=== PATIENT | female | born 1995 | race African-American/Black ===

== ENCOUNTER 2018-11-27 05:45 | Inpatient (IN) ==
[2018-11-27] MEDS ORDERED: FAMOTIDINE 20 MG/2 ML VIAL IV ONE (06:01)
[2018-11-27] MEDS ORDERED: ceFAZolin 3,000 MG in SYRINGE 1 EACH IV ONE (06:01)
[2018-11-27] MEDS ORDERED: CITRIC ACID/SODIUM CITRATE 30 ML UDCUP PO ONE (06:01)
[2018-11-27 06:30] LABS: Basophils % 0.3 % (0.0-0.8); Eosinophils % 0.3 % (0.00-10.9); Hematocrit 30.7 VOL% (35.7-47.0); Immature Granulocytes % 0.6 %; Immature Granulocytes Absolute 0.06 #; Lymphocytes # 2.9 10*3/uL (1.4-4.0); Lymphocytes % 29.5 % (21.3-54.2); Mean Corpuscular HGB Conc 29.3 GM/DL (32-36); Mean Corpuscular Hemoglobin 22 PG (27-34); Mean Corpuscular Volume 76.2 FL (87-102); Monocytes # 0.8 10*3/uL (0.11-0.8); Monocytes % 8.3 % (1.7-12.7); Platelet Count 200 T/CUMM (130-400); Red Blood Count 4.03 MC/CUMM (3.8-5.5); Red Cell Distribution Width 16.8 % (9.3-17.3); White Blood Count 9.9 T/CUMM (4-12)
[2018-11-27] MEDS: LACTATED RINGERS 1,000 ML IV SCH ×2 (06:38→09:38)
[2018-11-27] MEDS ORDERED: ONDANSETRON 4 MG/2 ML VIAL ONE ×2 (08:35→12:05)
[2018-11-27] MEDS ORDERED: OXYTOCIN/LR 30 UNIT/1,000 ML BAG IV ONE (09:44)
[2018-11-27] MEDS ORDERED: OXYTOCIN 10 UNIT/ML VIAL IM ONE (09:44)
[2018-11-27] MEDS ORDERED: fentaNYL 100 MCG/2 ML VIAL ONE (12:05)
[2018-11-27] MEDS ORDERED: BUPIVACAINE SPINAL 0.75% 2 ML AMP SPINAL ONE (12:05)
[2018-11-27] MEDS ORDERED: MORPHINE 10 MG/10 ML VIAL ONE (12:05)
[2018-11-27] MEDS ORDERED: RHO(D) IMMUNE GLOBULIN 300 MCG SYRINGE IM ONE (14:31)
[2018-11-27] MEDS ORDERED: ACETAMINOPHEN 325 MG TABLET PO PRN (14:31)
[2018-11-27] MEDS ORDERED: OXYTOCIN/LR 20 UNIT/1,000 ML BAG IV ONE (14:31)
[2018-11-27] MEDS ORDERED: LACTATED RINGERS 1,000 ML IV SCH (15:00)
[2018-11-27] MEDS ORDERED: ceFAZolin 1,000 MG in SYRINGE 1 EACH IV SCH (15:00)
[2018-11-27] MEDS: ONDANSETRON 4 MG/2 ML VIAL IV PRN ×2 (15:02→20:01)
[2018-11-27] MEDS ORDERED: hydrALAZINE 20 MG/1 ML VIAL IV ONE (19:43)
[2018-11-27] MEDS ORDERED: MEPERIDINE 50 MG/1 ML VIAL IV PRN (19:45)
[2018-11-27] MEDS ORDERED: MEPERIDINE 50 MG/1 ML VIAL ONE (19:47)
[2018-11-27] MEDS: ceFAZolin 1,000 MG in SYRINGE 1 EACH IV SCH (20:23)
[2018-11-27 20:41] LABS: Basophils % 0.1 % (0.0-0.8); Eosinophils % 0.1 % (0.00-10.9); Hemoglobin 8.2 GM/DL (12.0-16.0); Immature Granulocytes % 0.6 %; Immature Granulocytes Absolute 0.05 #; Lymphocytes # 1.6 10*3/uL (1.4-4.0); Lymphocytes % 18.4 % (21.3-54.2); Mean Corpuscular HGB Conc 30.4 GM/DL (32-36); Mean Corpuscular Hemoglobin 23 PG (27-34); Mean Corpuscular Volume 75.6 FL (87-102); Mean Platelet Volume 13.1 FL (9.6-12.0); Monocytes # 0.5 10*3/uL (0.11-0.8); Monocytes % 5.9 % (1.7-12.7); Neutrophils # 6.3 10*3/uL (1.4-7.4); Neutrophils % 74.9 % (38.7-73.9); Platelet Count 192 T/CUMM (130-400); Red Blood Count 3.57 MC/CUMM (3.8-5.5); Red Cell Distribution Width 16.5 % (9.3-17.3); White Blood Count 8.4 T/CUMM (4-12)
[2018-11-27] MEDS: DOCUSATE SODIUM 100 MG CAPSULE PO SCH (22:15)
[2018-11-28 04:09] LABS: Basophils % 0.1 % (0.0-0.8); Eosinophils % 0.1 % (0.00-10.9); Hematocrit 26.2 VOL% (35.7-47.0); Hemoglobin 7.8 GM/DL (12.0-16.0); Immature Granulocytes % 0.4 %; Immature Granulocytes Absolute 0.03 #; Lymphocytes # 1.3 10*3/uL (1.4-4.0); Lymphocytes % 17.5 % (21.3-54.2); Mean Corpuscular HGB Conc 29.8 GM/DL (32-36); Mean Corpuscular Hemoglobin 22 PG (27-34); Mean Corpuscular Volume 74.9 FL (87-102); Monocytes # 0.7 10*3/uL (0.11-0.8); Monocytes % 9.9 % (1.7-12.7); Neutrophils # 5.4 10*3/uL (1.4-7.4); Platelet Count 145 T/CUMM (130-400); Red Cell Distribution Width 16.4 % (9.3-17.3); White Blood Count 7.5 T/CUMM (4-12)
[2018-11-28 04:27] LABS: Platelet Estimate Decreased; Polychromasia Few
[2018-11-28] MEDS: ceFAZolin 1,000 MG in SYRINGE 1 EACH IV SCH (05:05)
[2018-11-28] MEDS: METOCLOPRAMIDE 10 MG/2 ML VIAL IV SCH ×2 (08:00→18:07)
[2018-11-28] MEDS ORDERED: SODIUM CHLORIDE 0.9% 1,000 ML IV PRN (09:00)
[2018-11-28] MEDS: DOCUSATE SODIUM 100 MG CAPSULE PO SCH ×2 (09:01→21:10)
[2018-11-28] MEDS: MULTIVITAMIN (PRENATAL) TABLET PO SCH (09:01)
[2018-11-28] MEDS: FERROUS SULFATE 325 MG TABLET PO SCH ×3 (09:10→21:10)
[2018-11-28] MEDS: IBUPROFEN 800 MG TABLET PO PRN (13:22)
[2018-11-28] MEDS: SIMETHICONE CHEW 80 MG TABLET PO PRN ×2 (14:31→21:10)
[2018-11-28] MEDS: MAGNESIUM HYDROXIDE SUSP 30 ML UDCUP PO PRN ×2 (14:31→21:10)
[2018-11-28] MEDS: METOCLOPRAMIDE 10 MG TABLET PO SCH (17:37)
[2018-11-28 18:59] LABS: Hematocrit 33.1 VOL% (35.7-47.0)
[2018-11-28 19:02] LABS: Hemoglobin 10.2 GM/DL (12.0-16.0)
[2018-11-28] MEDS ORDERED: BISACODYL 10 MG SUPP RECTAL PRN (21:17)
[2018-11-29] MEDS ORDERED: MAGNESIUM CITRATE 300 ML BOTTLE PO ONE (00:30)
[2018-11-29] MEDS: METOCLOPRAMIDE 10 MG TABLET PO SCH (01:12)
[2018-11-29] MEDS: MULTIVITAMIN (PRENATAL) TABLET PO SCH (08:42)
[2018-11-29] MEDS: FERROUS SULFATE 325 MG TABLET PO SCH (08:42)
[2018-11-29] MEDS: DOCUSATE SODIUM 100 MG CAPSULE PO SCH (08:42)
[2018-11-29 11:58] VITALS: BP 144/68
[2018-11-29] MEDS: IBUPROFEN 800 MG TABLET PO PRN (13:24)
== END 2018-11-29 14:15 | disposition home or self-care (01) | DRG 540 ==
LOC: N.LDOUT 05:45 → N.LD 05:46 → N.OB 17:22
PROVIDERS: ADMIT Obstetrics & Gynecology; ATTEND Obstetrics & Gynecology
PROC: LDCSECT (ICD-10-PCS; 2018-11-27 08:00)